=== PATIENT | male | born 1995 | race African-American/Black ===

== ENCOUNTER 2017-05-28 16:43 | Emergency (ER) | payer OTHER ==
[~2017-05-28] VITALS: Ht 172.7 cm; Wt 63.6 kg
[~2017-05-28 16:43] MED LIST: Z.0.NO CURRENT MEDS
[2017-05-28 16:46] VITALS: BP 156/92; PULSE 66; RESP 24; TEMP 97.8; O2SAT 98
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
[2017-05-28] MEDS ORDERED: IBUP-232 PO (18:57)
== END 2017-05-28 19:10 | disposition home or self-care (01) ==
LOC: NEPD 16:43
DX: S50.01XA Contusion of right elbow, initial encounter (principal); V43.62XA Car passenger injured in collision with other type car in traffic accident, initial encounter
CPT/HCPCS: 73080; 99283